=== PATIENT | male | born 1980 | race Caucasian/White ===

== ENCOUNTER 2017-02-28 19:08 | Inpatient (IN) | payer OTHER ==
[~2017-02-28] VITALS: Ht 172.7 cm; Wt 143.5 kg
[~2017-02-28 19:08] MED LIST: BACTRIM DS1 TAB PO; NOR10T PO; SYNTHROID PO; SYNTHROID0.025 MG PO
[2017-02-28 23:10] LABS: BASOPHIL % 0.1 % (0-2); PLATELET COUNT 253 x10^3mcL (130-400); RED CELL DISTRIBUTION WIDTH 13.2 % (11.5-14.5)
[2017-02-28 23:27] LABS: CALCIUM 9.3 mg/dL (8.5-10.1); CARBON DIOXIDE 26.4 mmol/L (21-32); CHLORIDE SERUM 99 mmol/L (98-107); CREATININE SERUM 0.9 mg/dL (0.7-1.3); GFR1 > 60 mL/min; GLUCOSE SERUM 109 mg/dL (74-106); POTASSIUM SERUM 4.2 mmol/L (3.5-5.1); SODIUM SERUM 126 mmol/L (136-145)
[2017-02-28 23:32] LABS: ALBUMIN 3.9 g/dL (3.4-5.0); ALKALINE PHOSPHATASE 106 U/L (46-116); ALT/SGPT 54 U/L (16-63); AST/SGOT 22 U/L (15-37); BILIRUBIN TOTAL 0.51 mg/dL (0.20-1.00); LIPASE 112 IU/L (73-393)
[2017-02-28] MEDS ORDERED: SYNTHROID0.112 MG PO (23:55)
[2017-03-01 02:10] VITALS: BP 117/60
[2017-03-01 02:53] VITALS: BP 117/60
[2017-03-01 04:06] LABS: T3 TOTAL 1.08 ng/mL
[2017-03-01 04:11] LABS: FREE T4 0.89 ng/dL (0.76-1.46); FREE THYROXINE INDEX 1.8 ug/dL (1.4-4.5); T4(THYROXINE) 5.5 ug/dL (4.7-13.3)
[2017-03-01 04:25] LABS: CHOLESTEROL/HDL RATIO 3.1; MAGNESIUM 2.2 mg/dL (1.8-2.4); PHOSPHOROUS 3.1 mg/dL (2.5-4.9)
[2017-03-01 07:03] LABS: microscopic required? NO
[2017-03-01 07:46] LABS: CALCIUM 9.5 mg/dL (8.5-10.1); CARBON DIOXIDE 23.7 mmol/L (21-32); CHLORIDE SERUM 105 mmol/L (98-107); CREATININE SERUM 0.9 mg/dL (0.7-1.3); GFR1 > 60 mL/min; GLUCOSE SERUM 150 mg/dL (74-106); POTASSIUM SERUM 4.5 mmol/L (3.5-5.1); SODIUM SERUM 136 mmol/L (136-145)
[2017-03-01 07:50] LABS: BASOPHIL % 0.1 % (0-2); PLATELET COUNT 250 x10^3mcL (130-400); RED CELL DISTRIBUTION WIDTH 13.1 % (11.5-14.5)
[2017-03-01 07:50] LABS: urine erythrocyte NEGATIVE (NEGATIVE)
[2017-03-01 07:51] LABS: AMPHETAMINE QUAL UR NONE DETECTED (NEG <=1000)
[2017-03-01 10:40] VITALS: BP 113/61
[2017-03-01 14:16] VITALS: BP 118/65
[2017-03-01 17:18] VITALS: BP 111/62
[2017-03-01 21:19] VITALS: Ht 172.7 cm; Wt 143.5 kg
[2017-03-01 22:01] VITALS: BP 112/70
[2017-03-02 06:23] VITALS: BP 112/70
[2017-03-02 07:48] LABS: BASOPHIL % 0.3 % (0-2); PLATELET COUNT 232 x10^3mcL (130-400); RED CELL DISTRIBUTION WIDTH 13.2 % (11.5-14.5)
[2017-03-02 08:14] LABS: CALCIUM 9.8 mg/dL (8.5-10.1); CARBON DIOXIDE 23.3 mmol/L (21-32); CHLORIDE SERUM 106 mmol/L (98-107); CREATININE SERUM 0.7 mg/dL (0.7-1.3); GFR1 > 60 mL/min; GLUCOSE SERUM 156 mg/dL (74-106); POTASSIUM SERUM 4.2 mmol/L (3.5-5.1); SODIUM SERUM 136 mmol/L (136-145)
[2017-03-02 09:43] VITALS: BP 119/67
[2017-03-02 11:24] VITALS: BP 119/67
[2017-03-02 12:46] VITALS: BP 124/75
[2017-03-02] MEDS ORDERED: APAP/HYDROCODON1 T13 PO (15:19)
[2017-03-02] MEDS ORDERED: CYCLOBENZAPRINE5 MG PO (15:19)
[2017-03-02] MEDS ORDERED: LEVAQUIN750 MG PO (15:25)
== END 2017-03-02 16:19 | disposition home or self-care (01) | DRG 728 ==
LOC: ED 19:08 → MU 03-01 00:06 → DU 03-01 00:06 → MU 03-01 03:16 → DU 03-01 04:08
PROVIDERS: Emergency Medicine; Family Medicine
DX: N45.1 Epididymitis (principal); D68.69 Other thrombophilia; E87.1 Hypo-osmolality and hyponatremia; Z68.42 Body mass index [BMI] 45.0-49.9, adult; E11.9 Type 2 diabetes mellitus without complications; E03.9 Hypothyroidism, unspecified; E66.01 Morbid (severe) obesity due to excess calories; M48.8X6 Other specified spondylopathies, lumbar region
CPT/HCPCS: 82962; 83880; 84439; J1100; J1956; J2270; J7030; Q0092

== ENCOUNTER 2019-02-25 02:39 | Emergency (ER) | payer OTHER ==
[~2019-02-25] VITALS: Ht 172.7 cm; Wt 155.6 kg
[~2019-02-25 02:39] MED LIST changes: +APAP/HYDROCODON1 T13 PO; +CYCLOBENZAPRINE5 MG PO; +LEVAQUIN750 MG PO; +SYNTHROID0.112 MG PO
[2019-02-25 02:47] VITALS: Ht 172.7 cm; Wt 155.6 kg
[2019-02-25 04:49] VITALS: BP 167/92
== END 2019-02-25 04:49 | disposition home or self-care (01) ==
LOC: ED 02:39
DX: L03.031 Cellulitis of right toe (principal); E11.9 Type 2 diabetes mellitus without complications; G43.909 Migraine, unspecified, not intractable, without status migrainosus; E03.9 Hypothyroidism, unspecified

== ENCOUNTER 2019-09-09 17:27 | Emergency (ER) | payer OTHER ==
[~2019-09-09] VITALS: Ht 172.7 cm; Wt 154.2 kg
[2019-09-09 17:29] VITALS: Ht 172.7 cm; Wt 154.2 kg
[2019-09-09 18:08] LABS: BASOPHIL % 0.6 % (0-2); PLATELET COUNT 253 x10^3mcL (130-400); RED CELL DISTRIBUTION WIDTH 12.8 % (11.5-14.5)
[2019-09-09 18:10] LABS: CARBON DIOXIDE 23.3 mmol/L (21-32); CHLORIDE SERUM 106 mmol/L (98-107); CREATININE SERUM 0.9 mg/dL (0.7-1.3); GFR1 > 60 mL/min; GLUCOSE SERUM 160 mg/dL (74-106); POTASSIUM SERUM 4.3 mmol/L (3.5-5.1); SODIUM SERUM 139 mmol/L (136-145)
[2019-09-09 18:19] LABS: ALBUMIN 3.8 g/dL (3.4-5.0); ALKALINE PHOSPHATASE 99 U/L (46-116); AST/SGOT 45 U/L (15-37); BILIRUBIN TOTAL 0.8 mg/dL (0.20-1.00); TOTAL PROTEIN, SERUM 6.6 g/dL (6.4-8.2)
[2019-09-09 18:43] LABS: ALT/SGPT 127 U/L (16-63)
[2019-09-09 19:44] LABS: T3 TOTAL 1.45 ng/mL
[2019-09-09 19:52] LABS: FREE T4 1.37 ng/dL (0.76-1.46); FREE THYROXINE INDEX 3.8 ug/dL (1.4-4.5); T4(THYROXINE) 11.1 ug/dL (4.7-13.3)
[2019-09-09 20:23] VITALS: BP 119/59
== END 2019-09-09 20:23 | disposition home or self-care (01) ==
LOC: ED 17:27
PROVIDERS: Emergency Medicine
DX: R07.89 Other chest pain (principal); E11.9 Type 2 diabetes mellitus without complications; E03.9 Hypothyroidism, unspecified; G43.909 Migraine, unspecified, not intractable, without status migrainosus; Z88.1 Allergy status to other antibiotic agents
CPT/HCPCS: 84439; J1885; Q0092